=== PATIENT | female | born 1970 | race African-American/Black ===

== ENCOUNTER 2018-12-14 09:35 | Emergency (ER) | payer SELFPAY ==
--- NOTE | 2018-12-14 10:06 | EDM.PDOC ---
ED HPI GENERAL MEDICAL PROBLEM - General Chief Complaint: Headache Stated Complaint: HEADACHE, BLURRY VISION Time Seen by Provider: 12/14/18 10:01 Source of Information: Reports: Patient History Limitations: Reports: No Limitations - History of Present Illness INITIAL COMMENTS - FREE TEXT/NARRATIVE: HISTORY AND PHYSICAL: History of present illness: Patient is a 48-year-old female is asked to the ED today with concerns of headache, and blurred vision. Patient states that about 8 this morning she started having blurriness in her left eye so she called the ambulance. When they arrived the blurriness had subsided. She states that since this happened, she had a headache. She rates her headache a 2 out of 10. She has not taken any medications at home for her headache. Patient states she's had migraines in the past but does not experience them frequently. She denies any visual changes or deficits upon arrival to the ED. She denies fever, chills, facial drooping, nausea, vomiting, difficulties breathing, shortness of breath, or all other GI, , cardiovascular, or respiratory concerns. Patient does have a history of anemia but denies any other health history. Review of systems: As per history of present illness and below otherwise all systems reviewed and negative. Past medical history: As per history of present illness and as reviewed below otherwise noncontributory. Surgical history: As per history of present illness and as reviewed below otherwise noncontributory. Social history: No reported history of drug or alcohol abuse. Family history: As per history of present illness and as reviewed below otherwise noncontributory. Physical exam: General: Patient sitting comfortably in no acute distress and nontoxic appearing HEENT: Atraumatic, normocephalic, pupils reactive, negative for conjunctival pallor or scleral icterus, mucous membranes moist, throat clear, neck supple, nontender, trachea midline. No meningeal signs. Lungs: Clear to auscultation, breath sounds equal bilaterally, chest nontender. Heart: S1S2, regular, negative for clicks, rubs, or overt murmur. Abdomen: Soft, nondistended, nontender. Negative for masses or hepatosplenomegaly. Negative for costovertebral tenderness. Pelvis: Stable nontender. Genitourinary: Deferred. Rectal: Deferred. Extremities: Atraumatic, negative for cords or calf pain. Neurovascular unremarkable. Neuro: Awake, alert, oriented. Cranial nerves II through XII unremarkable. Cerebellum unremarkable. Motor and sensory unremarkable throughout. Exam nonfocal. Notes: Physical exam and vitals today are unremarkable. She does have slightly elevated blood pressure. Patient was offered treatment for her headache but she declines today. She is agreeable to labs and imaging. Will do head CT. Head CT shows no acute intracranial findings. Labs today are unremarkable. Discussed the importance of follow-up with her primary care provider as well as to address her blood pressure. Diagnostics: CBC, CMP, head CT Therapeutics: None Prescriptions: None Impression: Headache, unspecified Plan: 1. You can use Tylenol or ibuprofen as directed for headache/discomfort. 2. Encourage drinking fluids/water to prevent dehydration. 3. Follow-up with your primary care provider in the next 1-2 days as discussed and follow up with your blood pressure. 4. Return to the ED as needed as discussed. Definitive disposition and diagnosis as appropriate pending reevaluation and review of above. Head Pain Score (Numeric/FACES): 2 - Related Data Allergies Allergy/AdvReac Type Severity Reaction Status Date / Time No Known Allergies Allergy Verified 12/14/18 09:48 Home Meds: Home Meds Iron 1 mg PO DAILY 12/14/18 [History] Past Medical History Cardiovascular History: Reports: None Respiratory History: Reports: None Genitourinary History: Reports: None [employer] History: Reports: Musculoskeletal History: Reports: None Neurological History: Reports: None Psychiatric History: Reports: None Endocrine/Metabolic History: Reports: None Hematologic History: Reports: None Immunologic History: Reports: None Oncologic (Cancer) History: Reports: None Dermatologic History: Reports: None - Infectious Disease History Infectious Disease History: Reports: None - Past Surgical History Head Surgeries/Procedures: Reports: None HEENT Surgical History: Reports: Tonsillectomy GI Surgical History: Reports: Appendectomy Social & Family History - Family History Family Medical History: Noncontributory - Tobacco Use Smoking Status *Q: Never Smoker - Caffeine Use Caffeine Use: Reports: None - Recreational Drug Use Recreational Drug Use: No ED ROS GENERAL - Review of Systems Review Of Systems: ROS reveals no pertinent complaints other than HPI. - Physical Exam Exam: See Below (See dictation) Course - Vital Signs Last Recorded V/S: Last Vital Signs Temp 97 F 12/14/18 09:50 Pulse 87 12/14/18 09:50 Resp 16 12/14/18 09:50 BP 146/86 H 12/14/18 09:50 Pulse Ox 97 12/14/18 09:50 - Orders/Labs/Meds Labs: Laboratory Tests 12/14/18 12/14/18 Range/Units 10:32 10:32 WBC 10.74 (4.0-11.0) K/uL RBC 5.01 (4.30-5.90) M/uL Hgb 11.9 L (12.0-16.0) g/dL Hct 38.4 (36.0-46.0) % MCV 76.6 L (80.0-98.0) fL MCH 23.8 L (27.0-32.0) pg MCHC 31.0 (31.0-37.0) g/dL RDW Std Deviation 46.3 (28.0-62.0) fl RDW Coeff of Shaun 17 H (11.0-15.0) % Plt Count 353 (150-400) K/uL MPV 10.50 (7.40-12.00) fL Neut % (Auto) 67.2 (48.0-80.0) % Lymph % (Auto) 23.0 (16.0-40.0) % [place] % (Auto) 8.5 (0.0-15.0) % Eos % (Auto) 1.1 (0.0-7.0) % Baso % (Auto) 0.2 (0.0-1.5) % Neut # (Auto) 7.2 H (1.4-5.7) K/uL Lymph # (Auto) 2.5 H (0.6-2.4) K/uL [place] # (Auto) 0.9 H (0.0-0.8) K/uL Eos # (Auto) 0.1 (0.0-0.7) K/uL Baso # (Auto) 0.0 (0.0-0.1) K/uL Nucleated RBC % 0.0 /100WBC Nucleated RBCs # 0 K/uL Sodium 136 (136-145) mmol/L Potassium 4.0 (3.5-5.1) mmol/L Chloride 103 (98-107) mmol/L Carbon Dioxide 25.9 (21.0-32.0) mmol/L BUN 16 (7.0-18.0) mg/dL Creatinine 1.1 H (0.6-1.0) mg/dL Est Cr Clr Drug Dosing 60.82 mL/min Estimated GFR (MDRD) > 60.0 ml/min Glucose 82 (74-106) mg/dL Calcium 8.9 (8.5-10.1) mg/dL Total Bilirubin 0.4 (0.2-1.0) mg/dL AST 20 (15-37) IU/L ALT 22 (14-63) IU/L Alkaline Phosphatase 102 (46-116) U/L Total Protein 7.9 (6.4-8.2) g/dL Albumin 3.4 (3.4-5.0) g/dL Globulin 4.5 H (2.6-4.0) g/dL Albumin/Globulin Ratio 0.8 L (0.9-1.6) Departure - Departure Time of Disposition: 11:07 Disposition: Home, Self-Care 01 Clinical Impression: Headache Qualifiers: Headache type: unspecified Headache chronicity pattern: unspecified pattern Intractability: intractable Qualified Code(s): R51 - Headache - Discharge Information Instructions: General Headache Without Cause, [id number] Referrals: PCP,None [Primary Care Provider] - Forms: ED Department Discharge Additional Instructions: The following information is given to patients seen in the emergency department who are being discharged to home. This information is to outline your options for follow-up care. We provide all patients seen in our emergency department with a follow-up referral. The need for follow-up, as well as the timing and circumstances, are variable depending upon the specifics of your emergency department visit. If you don't have a primary care physician on staff, we will provide you with a referral. We always advise you to contact your personal physician following an emergency department visit to inform them of the circumstance of the visit and for follow-up with them and/or the need for any referrals to a consulting specialist. The emergency department will also refer you to a specialist when appropriate. This referral assures that you have the opportunity for follow-up care with a specialist. All of these measure are taken in an effort to provide you with optimal care, which includes your follow-up. Under all circumstances we always encourage you to contact your private physician who remains a resource for coordinating your care. When calling for follow-up care, please make the office aware that this follow-up is from your recent emergency room visit. If for any reason you are refused follow-up, please contact the [facility] Emergency Department at and asked to speak to the emergency department charge nurse. [facility] [address] [place] [id number] [facility] [address] [place] [id number] 1. You can use Tylenol or ibuprofen as directed for headache/discomfort. 2. Encourage drinking fluids/water to prevent dehydration. 3. Follow-up with your primary care provider in the next 1-2 days as discussed and follow up with your blood pressure. 4. Return to the ED as needed as discussed.
--- NOTE | 2018-12-14 10:55 | CT ---
EXAMINATION: Non contrast CT head. Coronal and sagittal reformats. HISTORY: Pain FINDINGS: No evidence of intra or extra axial hemorrhage, mass, midline shift, hydrocephalus or edema. No hypoattenuation changes in the major vascular territories to suggest acute infarct. No abnormal intracranial calcifications are detected. No evidence of substantial vascular calcifications. Paranasal sinuses and mastoid air cells are essentially well aerated without substantial findings. Orbits and globes are symmetric. Pituitary fossa appears unremarkable. Calvarium is intact. No evidence of skull fracture. IMPRESSION: No acute intracranial findings.
[2018-12-14 11:17] LABS: CHLORIDE,CL 103 mmol/L (98-107); SODIUM,NA 136 mmol/L (136-145)
== END 2018-12-14 11:44 | disposition home or self-care (01) ==
LOC: MW.ED 09:35
DX: R51 Headache (principal)
CPT/HCPCS: 36415; 70450; 70450-26; 80053; 85025; 99284-25